=== PATIENT | male | born 1985 | race African-American/Black ===

== ENCOUNTER 2021-04-26 20:20 | Emergency (ER) | payer OTHER, MEDICAID ==
[~2021-04-26] VITALS: Ht 193 cm; Wt 101.3 kg
[2021-04-26 20:33] VITALS: BP 155/90
--- NOTE | 2021-04-26 20:33 | NUR ---
TO BED AMBULATORY
[2021-04-26 21:03] VITALS: BP 155/90
--- NOTE | 2021-04-26 21:03 | NUR ---
PATIENT LEFT WITHOUT BEING SEEN BY DR. RYDER. NO FURTHER CARE PROVIDED FOR PATIENT.
== END 2021-04-26 21:03 | disposition left against medical advice (07) ==
LOC: MED 20:20
DX: K59.00 Constipation, unspecified (principal); Z53.21 Procedure and treatment not carried out due to patient leaving prior to being seen by health care provider